=== PATIENT | male | born 1995 | race African-American/Black ===

== ENCOUNTER 2018-08-27 03:41 | Emergency (ER) | payer OTHER ==
[~2018-08-27] VITALS: Ht 190.5 cm; Wt 95.5 kg
[2018-08-27 03:48] VITALS: TEMP 98.9
[2018-08-27 05:31] VITALS: BP 153/89; PULSE 89
== END 2018-08-27 05:32 | disposition home or self-care (01) ==
LOC: COL.ER 03:41
DX: T20.29XA Burn of second degree of multiple sites of head, face, and neck, initial encounter (principal); T23.201A Burn of second degree of right hand, unspecified site, initial encounter; W40.8XXA Explosion of other specified explosive materials, initial encounter; Y92.009 Unspecified place in unspecified non-institutional (private) residence as the place of occurrence of the external cause